=== PATIENT | female | born 1965 | race Caucasian/White ===

== ENCOUNTER 2023-04-08 17:43 | Observation (INO) ==
[2023-04-08] MEDS ORDERED: Lactated Ringers 1000 ml BAG 1,000 ML IV ONE (18:02)
[2023-04-08 20:29] LABS: Urine Appearance Clear; Urine Bilirubin Negative (Negative); Urine Blood 2+ (Negative); Urine Color Yellow; Urine Glucose Negative (Negative); Urine Ketones Negative (Negative); Urine Nitrite Negative (Negative); Urine Protein Negative (Negative); Urine Specific Gravity 1.042 (1.002-1.030); Urine Urobilinogen Negative (Negative)
[2023-04-08 20:43] LABS: Urine Bacteria Absent (Absent); Urine Red Blood Cell 1+(3-5/hpf) (Absent); Urine Squamous Epithelial Cell Present (Absent); Urine White Blood Cell Trace(0-5/hpf) (Absent)
[2023-04-08] MEDS: Enoxaparin 60 MG/0.6 ML SYR SUBCUT SCH (21:45)
[2023-04-08 21:55] LABS: High Sensitivity Troponin 1 Hr 4 pg/mL (<15)
[2023-04-08 22:32] LABS: Albumin 2.5 g/dL (3.2-5.2); Potassium 4.1 mmol/L (3.5-5.0); Total Bilirubin 0.6 mg/dL (0.2-1.0)
[2023-04-08 22:38] LABS: Albumin/Globulin Ratio 0.9 (1-3); Creatinine, Serum 0.66 mg/dL (0.51-0.95); Globulin 2.9 g/dL (2-4); Total Protein 5.4 g/dL (6.4-8.9); eGFR CKD-EPI 101.6 (>60)
[2023-04-09] MEDS ORDERED: NS 0.9% 1000 ml BAG 1,000 ML IV ONE ×2 (00:06→06:26)
[2023-04-09 05:52] LABS: Calcium 7.6 mg/dL (8.6-10.3); Creatinine, Serum 0.64 mg/dL (0.51-0.95); Magnesium 1.4 mg/dL (1.9-2.7); eGFR CKD-EPI 102.4 (>60)
[2023-04-09 06:30] LABS: Anisocytosis 1+; Macrocytosis 2+
[2023-04-09 06:32] LABS: ABS Basophils 0.1 10^3/uL (0.0-0.1); ABS Eosinophils 0.8 10^3/uL (0.0-0.5); ABS Lymphocytes 2.6 10^3/uL (1.0-4.8); ABS Monocytes 0.9 10^3/uL (0.0-0.9); ABS Neutrophils 4.6 10^3/uL (1.5-7.6); ABS Nucleated RBC 0.01 10^3/ul; Eosinophil % 8.6 %; Hematocrit 25.9 % (35-45); Lymphocyte % 29.2 %; Mean Corpuscular Hgb Conc 34.7 g/dL (31-36); Mean Corpuscular Volume 112.2 fL (80-97); Mean Platelet Volume 8.3 fL (7.5-11.2); Nucleated Red Blood Cells % 0.2 /100 WBC (0.0-0.4); Platelet Count 288 10^3/uL (150-450); Red Blood Count 2.31 10^6/uL (3.63-4.92); Red Cell Distribution Width 19.1 % (12-17)
[2023-04-09] MEDS ORDERED: Magnesium Sulf 4 GM/100 ML IV 4,000 MG/100 ML BAG IVPB ONE (07:49)
[2023-04-09] MEDS: Enoxaparin 60 MG/0.6 ML SYR SUBCUT SCH ×2 (09:02→22:06)
[2023-04-09] MEDS ORDERED: Lactated Ringers 1000 ml BAG 1,000 ML IV ONE (13:02)
[2023-04-10 06:20] LABS: Calcium 7.7 mg/dL (8.6-10.3); Creatinine, Serum 0.67 mg/dL (0.51-0.95); Potassium 3.7 mmol/L (3.5-5.0); eGFR CKD-EPI 101.2 (>60)
[2023-04-10 06:34] LABS: Hemoglobin 8.7 g/dL (11.5-14.3); Mean Corpuscular Hemoglobin 39.3 pg (27-33); Mean Corpuscular Hgb Conc 34.7 g/dL (31-36); Mean Platelet Volume 8.3 fL (7.5-11.2); Platelet Count 332 10^3/uL (150-450); Red Blood Count 2.21 10^6/uL (3.63-4.92); Red Cell Distribution Width 18.6 % (12-17); White Blood Count 8.4 10^3/uL (3.8-11.8)
[2023-04-10 08:01] LABS: Magnesium 2.1 mg/dL (1.9-2.7)
[2023-04-10 08:38] LABS: Folate 3.51 ng/mL (5.90-24.80)
[2023-04-10 08:43] LABS: Vitamin D Total 25(OH) 14.6 ng/mL (20-50)
[2023-04-10 08:48] LABS: Macrocytosis 2+
[2023-04-10] MEDS ORDERED: Cholecalciferol (VIT D3) 1,000 unit TAB PO SCH (10:00)
[2023-04-10] MEDS ORDERED: Cyanocobalamin INJ 1,000 MCG/ML VIAL 1 ML VIAL IM ONE (10:19)
[2023-04-10] MEDS: Enoxaparin 60 MG/0.6 ML SYR SUBCUT SCH (10:45)
[2023-04-10 15:25] VITALS: BP 94/61
== END 2023-04-10 15:30 | disposition home or self-care (01) ==
LOC: ED 17:43 → EDHOLD 17:43 → SUATTDRO 20:29 → MEDTELE 04-09 13:25 → EDHOLD 04-09 14:19 → MEDTELE 04-09 19:52
PROVIDERS: ADMIT Student in an Organized Health Care Education/Training Program; ATTEND Internal Medicine